=== PATIENT | male | born 1985 | race Caucasian/White ===

== ENCOUNTER 2017-03-26 03:40 | Emergency (ER) | payer OTHER ==
[~2017-03-26] VITALS: Ht 203.2 cm; Wt 114.4 kg
[2017-03-26] MEDS ORDERED: KETOROLAC 30 MG/1 ML ONE (04:20)
[2017-03-26] MEDS ORDERED: DEXAMETHASONE 4 MG/ML, 5ML ONE (04:25)
[2017-03-26] MEDS ORDERED: DEXAMETHASONE 4 MG/ML, 1ML IV ONE (04:30)
[2017-03-26] MEDS ORDERED: DEXAMETHASONE 10 MG in SODIUM CHLORIDE 0.9% 50 ML IV ONE (04:30)
[2017-03-26] MEDS ORDERED: KETOROLAC 30 MG/1 ML IVPush ONE (04:30)
[2017-03-26 05:32] VITALS: BP 146/84
== END 2017-03-26 05:34 | disposition home or self-care (01) ==
LOC: ED 05:28
DX: J02.0 Streptococcal pharyngitis (principal)
CPT/HCPCS: 87880; 96374; 96375; 99284; J1100; J1885